=== PATIENT | male | born 1940 | race Caucasian/White ===

== ENCOUNTER 2016-09-08 07:16 | Day surgery (SDC) | payer MEDICARE, BC ==
--- NOTE | ~2016-09-08 | EGD ---
EGD REPORT [facility] [address] [address] NAME: EUGENIA LONG : [birth year] [place] : [place] [facility] [place] [id number] AGE: 76 ADM/REG DATE : 09/08/16 MR#: [id number] REPORT SERV DATE: 09/08/16 DICTATED BY: CESIA DEL VALLE III DATE: 09/08/16 REPORT STATUS : Draft [facility]ANSCRIBED BY: [facility] DATE: 09/08/16 Endoscopy Center Patient Name: Eugenia Long Date of : 1940 Attending MD: ECSIA DEL VALLE III, MD Procedure Date No Time: 09/08/2016 Procedure: Upper GI endoscopy Indications: Iron deficiency anemia secondary to chronic blood loss, Heme positive stool Referring MD: ROSE MARY MARQUEZ Medicines: Propofol per Anesthesia Complications: No immediate complications. Procedure: Pre-Anesthesia Assessment: - ASA Grade Assessment: IV - A patient with severe systemic disease that is a constant threat to life. After obtaining informed consent, the endoscope was passed under direct vision. Throughout the procedure, the patient's blood pressure, pulse, and oxygen saturations were monitored continuously. The GIF [id number] [id number] was introduced through the mouth, and advanced to the third part of duodenum. The upper GI endoscopy was accomplished with ease. The patient tolerated the procedure well. Findings: The examined esophagus was normal. There is no endoscopic evidence of varices in the lower third of the esophagus. A small hiatus hernia was present. 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 Scattered mild mucosal abnormality characterized by Xanthomas was found in the stomach. Impression: - Normal esophagus. - Hiatus hernia. - Mucosal abnormality in the duodenum. 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 Recommendation: - Patient has a contact number available for emergencies. The signs and symptoms of potential delayed complications were discussed with the patient. Return to normal activities tomorrow. Written discharge instructions were provided to the patient. - Discharge patient to home. EGD REPORT [address] [address] NAME: EUGENIA LONG : [birth year] STATUS : REG [facility]#: [id number] AGE: 76 ADM/REG DATE : 09/08/16 MR#: [id number] REPORT SERV DATE: 09/08/16 DICTATED BY: CESIA DEL VALLE III DATE: 09/08/16 REPORT STATUS : Draft TRANSCRIBED BY: [employer] DATE: 09/08/16 - Return to previous diet. - Continue present medications. Procedure Code(s): --- Professional --- 43774, Esophagogastroduodenoscopy, flexible, transoral; diagnostic, including collection of specimen(s) by brushing or washing, when performed (separate procedure) Diagnosis Code(s): --- Professional --- K44.9, Diaphragmatic hernia without obstruction or gangrene K31.9, Disease of stomach and duodenum, unspecified D50.0, Iron deficiency anemia secondary to blood loss (chronic) R19.5, Other fecal abnormalities CPT copyright 2013 [employer]. All rights reserved. The codes documented in this report are preliminary and upon experimental rocketsled mechanic review may be revised to meet current compliance requirements. CESIA DEL VALLE III, MD 09/08/2016 9:14 AM This report has been signed electronically. Number of Addenda: 0 Note Initiated On: 09/08/2016 8:56 AM Scope Withdrawal Time 0 hours 0 minutes 0 seconds [id number] [place] [id number]
--- NOTE | ~2016-09-08 | EGD ---
EGD REPORT [facility] [address] [address] NAME: EUGENIA CALVILLO : [birth year] STATUS : REG [facility] [place] PAT#: [id number] AGE: 76 ADM/REG DATE : 09/08/16 MR#: [id number] REPORT SERV DATE: 09/08/16 DICTATED BY: CESIA DEL VALLE III DATE: 09/08/16 REPORT STATUS : Draft [facility]ANS[facility]IBED [facility]: [facility] DATE: 09/08/16 Endoscopy Center Patient Name: Eugenia Calvillo Date of : 1940 Attending MD: CESIA DEL VALLE III, MD Procedure Date No Time: 09/08/2016 Procedure: Colonoscopy Indications: Heme positive stool, Iron deficiency anemia secondary to chronic blood loss Referring MD: ROSE MARY MARQUEZ Medicines: Propofol per Anesthesia Complications: No immediate complications. Procedure: Pre-Anesthesia Assessment: - ASA Grade Assessment: [ASA Grade]. - ASA Grade Assessment: IV - A patient with severe systemic disease that is a constant threat to life. After I obtained informed consent, the scope was passed under direct vision. Throughout the procedure, the patient's blood pressure, pulse, and oxygen saturations were monitored continuously. The PCF [id number] was introduced through the anus and advanced to the terminal ileum. The colonoscopy was performed with ease. The patient tolerated the procedure well. The quality of the bowel preparation was good. Findings: External and internal hemorrhoids were found during retroflexion. Small-mouthed diverticula were found in the sigmoid colon. A pedunculated polyp was found in the sigmoid colon. The polyp was 12 mm in size. The polyp was removed with a hot snare. Resection and retrieval were complete. Two sessile polyps were found in the transverse colon. The polyps were 4 to 5 mm in size. These polyps were removed with a cold biopsy forceps. Resection and retrieval were complete. A sessile polyp was found in the cecum. The polyp was 5 mm in size. The polyp was removed with a cold biopsy forceps. Resection and retrieval were complete. The terminal ileum appeared normal. Impression: - External and internal hemorrhoids. - Diverticulosis in the sigmoid colon. - One 12 mm polyp in the sigmoid colon. Resected and retrieved. - Two 4 to 5 mm polyps in the transverse colon. Resected and retrieved. EGD REPORT [address] [address] NAME: EUGENIA CALVILLO : [birth year] STATUS : REG [facility]#: [id number] AGE: 76 ADM/REG DATE : 09/08/16 MR#: [id number] REPORT SERV DATE: 09/08/16 DICTATED BY: CESIA DEL VALLE III DATE: 09/08/16 REPORT STATUS : Draft TRANSCRIBED BY: [facility] DATE: 09/08/16 - One 5 mm polyp in the cecum. Resected and retrieved. - The examined portion of the ileum was normal. Recommendation: - Patient has a contact number available for emergencies. The signs and symptoms of potential delayed complications were discussed with the patient. Return to normal activities tomorrow. Written discharge instructions were provided to the patient. - Discharge patient to home. - High fiber diet indefinitely. - Await pathology results. - Continue present medications. Procedure Code(s): --- Professional --- 51192, Colonoscopy, flexible, proximal to splenic flexure; with removal of tumor(s), polyp(s), or other lesion(s) by snare technique 16359, 59, Colonoscopy, flexible, proximal to splenic flexure; with biopsy, single or multiple Diagnosis Code(s): --- Professional --- K64.8, Other hemorrhoids K57.30, Diverticulosis of large intestine without perforation or abscess without bleeding D12.0, Benign neoplasm of cecum D12.3, Benign neoplasm of transverse colon D12.5, Benign neoplasm of sigmoid colon R19.5, Other fecal abnormalities D50.0, Iron deficiency anemia secondary to blood loss (chronic) CPT copyright 2013 [employer]. All rights reserved. The codes documented in this report are preliminary and upon automobile body repairer helper review may be revised to meet current compliance requirements. CESIA DEL VALLE III, MD 09/08/2016 9:37 AM This report has been signed electronically. Number of Addenda: 0 Note Initiated On: 09/08/2016 8:52 AM Scope Withdrawal Time 0 hours 17 minutes 38 seconds [id number] [id number]
[~2016-09-08 07:16] MED LIST: 8 HOUR650 MG PO; ACET500CAP PO; APRES50 PO; ASAB PO; BENICAR HCT1 TA1 PO; BUM1 PO; CLARIT10 PO; CYANO1000T PO; FERROCITE OR; FESO4 PO; FISH-EPA1000 MG PO; GLUCOTRO10 PO; GLUCOTROL5 PO; GLUCPH PO; GLUCXL5 PO; HALF81 PO; HYDRALAZINE100 MG PO; IMDUR30 PO; IRON325 MG PO; JANUVIA100 MG PO; L40 PO; L80 PO; LIPITOR10 PO; LIPITOR20 PO; LYRICA225 MG PO; NEXIUM40 PO; NORCO1 TA1 PO; NORV10 PO; NORV5 PO; OTC IRON PO; PLAVIX PO; PROTONIX PO; RENVELA800 MG PO; TOPXL50 PO; ULORIC40 MG PO; VITD PO; Z100 PO
[2016-09-08 07:47] LABS: CALCIUM, SERUM 8.5 MG/DL (8.5-10.4); CHLORIDE, SERUM 108 MMOL/L (96-112); CO2 (CARBON DIOXIDE) 29 MMOL/L (24-34); CREATININE 3.69 MG/DL (0.70-1.30); GFR AFRICAN AMERICAN 18 ML/MIN (>=60); GFR NON AFRICAN AMERICAN 15 ML/MIN (>=60); POTASSIUM, SERUM 4.1 MMOL/L (3.5-5.3); SODIUM, SERUM 148 MMOL/L (135-148)
[2016-09-08 07:48] LABS: BUN (BLOOD UREA NITROGEN) 62 MG/DL (6-23); GLUCOSE, SERUM 118 MG/DL (60-99)
[2017-03-07] MEDS ORDERED: HALF81 PO (18:37)
[2017-03-07] MEDS ORDERED: LYRICA225 MG PO (18:37)
[2017-03-07] MEDS ORDERED: VITD PO (18:38)
[2017-03-07] MEDS ORDERED: NORV5 PO (18:38)
[2017-03-07] MEDS ORDERED: GLUCOTROL5 PO (18:38)
[2017-03-07] MEDS ORDERED: L40 PO ×2 (18:40→18:41)
[2017-03-07] MEDS ORDERED: TOPXL50 PO (18:42)
[2017-03-07] MEDS ORDERED: HYDRALAZINE100 MG PO (18:43)
[2017-03-07] MEDS ORDERED: RENVELA800 MG PO (18:45)
[2017-03-07] MEDS ORDERED: PROTONIX PO (18:46)
[2017-03-07] MEDS ORDERED: Z100 PO (18:46)
[2017-03-07] MEDS ORDERED: IMDUR30 PO (18:47)
[2017-03-07] MEDS ORDERED: CYANO1000T PO (18:47)
== END 2016-09-08 23:59 | disposition home or self-care (01) ==
LOC: DMU 07:16
PROVIDERS: Anesthesiology; Internal Medicine Gastroenterology
PROC: 0DBN8ZZ Excision of Sigmoid Colon, Via Natural or Artificial Opening Endoscopic (ICD-10-PCS; 2016-09-08)
PROC: 0DBH8ZZ Excision of Cecum, Via Natural or Artificial Opening Endoscopic (ICD-10-PCS; 2016-09-08)
PROC: 0DBL8ZZ Excision of Transverse Colon, Via Natural or Artificial Opening Endoscopic (ICD-10-PCS; 2016-09-08)
PROC: 0DJ08ZZ Inspection of Upper Intestinal Tract, Via Natural or Artificial Opening Endoscopic (ICD-10-PCS; principal; 2016-09-08 08:30)
DX: K63.5 Polyp of colon (principal); D50.0 Iron deficiency anemia secondary to blood loss (chronic); K44.9 Diaphragmatic hernia without obstruction or gangrene; K31.9 Disease of stomach and duodenum, unspecified; K57.30 Diverticulosis of large intestine without perforation or abscess without bleeding; K64.8 Other hemorrhoids; K64.4 Residual hemorrhoidal skin tags; K21.9 Gastro-esophageal reflux disease without esophagitis; K74.60 Unspecified cirrhosis of liver; I25.10 Atherosclerotic heart disease of native coronary artery without angina pectoris; E11.22 Type 2 diabetes mellitus with diabetic chronic kidney disease; I12.9 Hypertensive chronic kidney disease with stage 1 through stage 4 chronic kidney disease, or unspecified chronic kidney disease; N18.4 Chronic kidney disease, stage 4 (severe); I27.2 Other secondary pulmonary hypertension; M19.90 Unspecified osteoarthritis, unspecified site; F32.9 Major depressive disorder, single episode, unspecified; G47.33 Obstructive sleep apnea (adult) (pediatric); E78.00 Pure hypercholesterolemia, unspecified; Z95.5 Presence of coronary angioplasty implant and graft; Z95.2 Presence of prosthetic heart valve; Z79.82 Long term (current) use of aspirin; Z79.02 Long term (current) use of antithrombotics/antiplatelets; Z79.899 Other long term (current) drug therapy; Z96.651 Presence of right artificial knee joint; Z96.1 Presence of intraocular lens; Z98.41 Cataract extraction status, right eye; Z98.42 Cataract extraction status, left eye; Z90.49 Acquired absence of other specified parts of digestive tract; Z90.79 Acquired absence of other genital organ(s); Z85.46 Personal history of malignant neoplasm of prostate; Z98.890 Other specified postprocedural states
CPT/HCPCS: 80048; 88305; J2370